=== PATIENT | male | born 1950 | race Caucasian/White ===

== ENCOUNTER 2016-09-25 20:31 | Emergency (ER) | payer BC ==
[2016-09-25] MEDS ORDERED: Aspirin Low Dose CHEW TAB* 81 MG PO ONE (21:22)
[2016-09-25 21:29] LABS: Hematocrit 42 % (42-52); Hemoglobin 14.1 g/dl (14.0-18.0); Mean Corpuscular HGB Conc 33 g/dl (31-36); Mean Corpuscular Hemoglobin 33 pg (27-31); Mean Corpuscular Volume 97 fL (80-94); Mean Platelet Volume 10 um3 (7.4-10.4); Red Blood Count 4.34 10^6/ul (4.0-5.4); Red Cell Distribution Width 13 % (10.5-15); White Blood Count 4.7 10^3/ul (3.5-10.8)
[2016-09-25 21:40] LABS: Albumin 4.4 g/dL (3.2-5.2); BUN/Creatinine Ratio 17.3 (8-20); Calcium 9.9 mg/dL (8.6-10.3); EGFR African American 73.4 (>60); EGFR Non-African American 57.1 (>60); Globulin 3.1 g/dL (2-4); Total Bilirubin 0.4 mg/dL (0.2-1.0); Total Protein 7.5 g/dL (6.4-8.9)
--- NOTE | 2016-09-25 22:16 | RAD ---
INDICATION: Wheezing COMPARISON: None. TECHNIQUE: Single AP portable view of the chest was obtained. FINDINGS: Image quality is compromised due to the relative inferiority of a portable chest x-ray. The heart and mediastinum exhibit normal size and contour. The lungs are grossly clear. There is no evidence of a large pleural effusion. Visualized bones are normal for the patient's age. IMPRESSION: No radiographic evidence for acute cardiopulmonary abnormality on this portable chest x-ray.
[2016-09-26 00:30] VITALS: BP 138/94
--- NOTE | 2016-09-26 00:34 | ED ---
Andreea Rios Alok, scribed for Lynn Shelton MD on 09/25/16 at 2243 . HPI Chest Pain - HPI Summary HPI Summary: 66M presents to the ED with an episode of CP earlier today. Pt was reportedly moving furniture at 1600 when he felt CP on the left side anterior which one hour later. Pt then mowed the in the heat. Pt states this CP was initially mild and has subsided since arriving at the ED. Pt denies changes in his CP with movement. Pt denies diaphoresis. PMHx includes HTN, HLD, sleep apnea. Pt drinks ETOH daily. Pt is a former tobacco smoker 10 years ago. - History of Current Complaint Chief Complaint: EDChestPainROMI Time Seen by Provider: 09/25/16 21:17 Hx Obtained From: Patient Onset/Duration: Started Hours Ago, Atraumatic, Resolved Timing: Constant, Lasting Hours Initial Severity: Moderate Current Severity: Moderate Pain Intensity: 1 Pain Scale Used: 0-10 Numeric Chest Pain Location: Left Anterior Aggravating Factor(s): Exertion Alleviating Factor(s): Nothing Associated Signs and Symptoms: Positive: Chest Pain. Negative: Fever, Diaphoresis - Allergy/Home Medications Allergies/Adverse Reactions: Allergies Allergy/AdvReac Type Severity Reaction Status Date / Time Cortisone Allergy Flushing Verified 09/25/16 20:33 Erythromycin Allergy Rash Verified 09/25/16 20:33 PMH/Surg Hx/FS Hx/Imm Hx Endocrine/Hematology History: Denies: Hx Diabetes, Hx Thyroid Disease Cardiovascular History: Denies: Hx Hypercholesterolemia, Hx Hypertension, Hx Pacemaker/ICD, Hx Peripheral Vascular Disease History: Denies: Hx Dialysis, Hx Renal Disease Musculoskeletal History: Reports: Other Musculoskeletal History - RIGHT HIP PAIN Denies: Hx Arthritis, Hx Rheumatoid Arthritis, Hx Osteoporosis Sensory History: Denies: Hx Cataracts, Hx Contacts or Glasses, Hx Glaucoma, Hx Hearing Aid Opthamlomology History: Denies: Hx Cataracts, Hx Contacts or Glasses, Hx Glaucoma Neurological History: Denies: Hx Headaches, Hx Seizures, Hx Transient Ischemic Attacks (TIA) Psychiatric History: Denies: Hx Anxiety, Hx Depression, Hx Panic Disorder - Surgical History Surgery Procedure, Year, and Place: hernia repair 1957. Left quadriceps repair from chainsaw injury 1979. TONSILECTOMY Infectious Disease History: No Infectious Disease History: Denies: Traveled Outside the [place] in Last 30 Days - Family History Known Family History: Negative: Cardiac Disease - Social History Lives: With Family Alcohol Use: Daily Alcohol Amount: WINE DAILY Substance Use Type: Reports: None Hx Tobacco Use: Yes Smoking Status (MU): Former Smoker Type: Cigarettes Review of Systems Negative: Fever, Skin Diaphoresis Positive: Chest Pain All Other Systems Reviewed And Are Negative: Yes Physical Exam Triage Information Reviewed: Yes Vital Signs On Initial Exam: Initial Vitals Temp Pulse Resp BP Pulse Ox 97.8 F 95 18 155/95 96 09/25/16 20:33 09/25/16 20:33 09/25/16 20:33 09/25/16 20:33 09/25/16 20:33 Vital Signs Reviewed: Yes Appearance: Positive: Well-Appearing, No Pain Distress Skin: Positive: Warm, Skin Color Reflects Adequate Perfusion, Dry Eyes: Positive: EOMI, OMKAR ENT: Positive: Pharynx normal, TMs normal Neck: Positive: Supple, Nontender Respiratory/Lung Sounds: Positive: Clear to Auscultation, Breath Sounds Present. Negative: Rales, Rhonchi, Wheezes Cardiovascular: Positive: RRR, Other - no gallop. Negative: Murmur, Rub Abdomen Description: Positive: Nontender, Soft, Other: - no rebound. Negative: Distended, Guarding Bowel Sounds: Positive: Present Musculoskeletal: Positive: Strength/ROM Intact. Negative: Edema Left, Edema Right Neurological: Positive: Sensory/Motor Intact, Alert, Oriented to Person Place, Time, CN Intact II-III Psychiatric: Positive: Affect/Mood Appropriate - Vivian Coma Scale Coma Scale Total: 15 Diagnostics - Vital Signs Vital Signs Temp Pulse Resp BP Pulse Ox 09/25/16 21:00 82 16 09/25/16 20:33 97.8 F 95 18 155/95 96 - Laboratory Lab Results: Lab Results 09/25/16 09/25/16 09/25/16 Range/Units 20:59 20:59 20:59 WBC 4.7 (3.5-10.8) 10^3/ul RBC 4.34 (4.0-5.4) 10^6/ul Hgb 14.1 (14.0-18.0) g/dl Hct 42 (42-52) % MCV 97 H (80-94) fL MCH 33 H (27-31) pg MCHC 33 (31-36) g/dl RDW 13 (10.5-15) % Plt Count 182 (150-450) 10^3/ul MPV 10 (7.4-10.4) um3 Neut % (Auto) 61.6 (38-83) % Lymph % (Auto) 28.2 (25-47) % [place] % (Auto) 8.2 (1-9) % Eos % (Auto) 1.6 (0-6) % Baso % (Auto) 0.4 (0-2) % Absolute Neuts (auto) 2.9 (1.5-7.7) 10^3/ul Absolute Lymphs (auto) 1.3 (1.0-4.8) 10^3/ul Absolute Monos (auto) 0.4 (0-0.8) 10^3/ul Absolute Eos (auto) 0.1 (0-0.6) 10^3/ul Absolute Basos (auto) 0 (0-0.2) 10^3/ul Absolute Nucleated RBC 0 10^3/ul Nucleated RBC % 0.1 Sodium 140 (133-145) mmol/L Potassium 4.0 (3.5-5.0) mmol/L Chloride 107 (101-111) mmol/L Carbon Dioxide 26 (22-32) mmol/L Anion Gap 7 (2-11) mmol/L BUN 22 (6-24) mg/dL Creatinine 1.27 H (0.67-1.17) mg/dL Est GFR ( Amer) 73.4 (>60) Est GFR (Non-Af Amer) 57.1 (>60) BUN/Creatinine Ratio 17.3 (8-20) Glucose 155 H (70-100) mg/dL Lactic Acid 1.5 (0.5-2.0) mmol/L Calcium 9.9 (8.6-10.3) mg/dL Total Bilirubin 0.40 (0.2-1.0) mg/dL AST 24 (13-39) U/L ALT 29 (7-52) U/L Alkaline Phosphatase 40 (34-104) U/L Troponin I 0.00 (<0.04) ng/mL Total Protein 7.5 (6.4-8.9) g/dL Albumin 4.4 (3.2-5.2) g/dL Globulin 3.1 (2-4) g/dL Albumin/Globulin Ratio 1.4 (1-3) Result Diagrams: 09/25/16 20:59 09/25/16 20:59 Lab Statement: Any lab studies that have been ordered have been reviewed, and results considered in the medical decision making process. - Radiology CXR Xray Interpretation: Positive (See Comments) - IMPRESSION: No radiographic evidence for acute cardiopulmonary abnormality on this portable chest x-ray. Radiology Interpretation Completed By: Radiologist - EKG 2038 Cardiac Rate: NL - 94 bpm EKG Rhythm: Sinus Rhythm Chest Pain Course/Dx - Course Course Of Treatment: 66 yo male with hx of htn and borderline high cholesterol with cp tonight, efforts were made to convince the pt to be observed over night since he noticed that he was more tired last week after working outside. He did not agree to this and is aware that there is the risk that this is unstable angina and he could have a massive heart attack, he did have two troponins with the second troponin at 6 hours and this was negative. he will arrange a f/u with his pmd for a stress test. - Diagnoses Provider Diagnoses: Chest pain Discharge - Discharge Plan Condition: Stable Disposition: HOME Patient Education Materials: Chest Pain (ED) Referrals: Preethi Urbina MD [Primary Care Provider] - Additional Instructions: Please follow up with your primary care provider The documentation as recorded by the Andreea vasquez Alok accurately reflects the service I personally performed and the decisions made by me, Lynn Shelton MD.
== END 2016-09-26 00:38 | disposition home or self-care (01) ==
LOC: ED 20:31 → SUPCPDRO 20:31 → ED 09-26 00:38
DX: R07.9 Chest pain, unspecified (principal); Z87.891 Personal history of nicotine dependence
CPT/HCPCS: 36415; 71010; 80053; 83605; 84484; 85025; 93005; 99283; A9270-GY

== ENCOUNTER 2018-02-06 18:32 | Emergency (ER) | payer BC, MEDICARE ==
[2018-02-06 18:46] VITALS: BP 143/86
--- NOTE | 2018-02-06 19:35 | ED ---
Skin Complaint - HPI Summary HPI Summary: Patient presents with rash in right groin which is been here for about a week. He reports he's been using topical Lamisil cream over the past 4-5 days and feels the center of his rash is clearing however he continues to have a red ring. Itching has resolved however there is still intermittent burning sensation. He denies fevers chills nausea vomiting diarrhea swelling of the lower extremity or genital issues. He has a history of athlete's foot and is usually able to get this under control within a couple of days with topical creams. He is frustrated that this rash in his groin has not resolved by now. He does admit he sits for long periods at his chair throughout the day and has been using a heating pad to help with his hip pain may be producing some extra heat/moisture in the area as a result. He is not applying any powder to the area and believes he initially caused this rash from walking daily when he had a lot of friction in the area. Denies history of diabetes or other autoimmune disorders. - History of Current Complaint Chief Complaint: UCRash Time Seen by Provider: 02/06/18 19:09 Stated Complaint: RASH Hx Obtained From: Patient Pain Intensity: 2 - Allergy/Home Medications Allergies/Adverse Reactions: Allergies Allergy/AdvReac Type Severity Reaction Status Date / Time cortisone Allergy Flushing Verified 02/06/18 18:47 erythromycin base Allergy Rash Verified 02/06/18 18:47 Home Medications: Home Medications Acetaminophen [APAP] 650 mg PO 02/06/18 [History] Losartan TAB* [Cozaar TAB*] 25 mg PO DAILY 02/06/18 [History Confirmed 02/06/18] Saw [place] Fruit [Saw [place]] 450 mg PO 02/06/18 [History] PMH/Surg Hx/FS Hx/Imm Hx Previously Healthy: Yes Endocrine/Hematology History: Reports: Other Endocrine/Hematological Disorders - h/o athlete's foot Denies: Hx Diabetes, Hx Thyroid Disease, Autoimmune Disease Cardiovascular History: Reports: Hx Hypertension Denies: Hx Hypercholesterolemia, Hx Pacemaker/ICD, Hx Peripheral Vascular Disease History: Denies: Hx Dialysis, Hx Renal Disease Musculoskeletal History: Reports: Other Musculoskeletal History - RIGHT HIP PAIN Denies: Hx Arthritis, Hx Rheumatoid Arthritis, Hx Osteoporosis Sensory History: Denies: Hx Cataracts, Hx Contacts or Glasses, Hx Glaucoma, Hx Hearing Aid Opthamlomology History: Denies: Hx Cataracts, Hx Contacts or Glasses, Hx Glaucoma Neurological History: Denies: Hx Headaches, Hx Seizures, Hx Transient Ischemic Attacks (TIA) Psychiatric History: Denies: Hx Anxiety, Hx Depression, Hx Panic Disorder - Surgical History Surgery Procedure, Year, and Place: hernia repair 1957. Left quadriceps repair from chainsaw injury 1979. TONSILECTOMY Infectious Disease History: No Infectious Disease History: Denies: Traveled Outside the [place] in Last 30 Days - Family History Known Family History: Negative: Cardiac Disease - Social History Occupation: Employed Full-time - works at home Lives: With Family Alcohol Use: Weekly Alcohol Amount: WINE DAILY Hx Substance Use: No Substance Use Type: Reports: None Hx Tobacco Use: Yes Smoking Status (MU): Former Smoker Type: Cigarettes Review of Systems Constitutional: Negative Negative: Fever, Chills, Fatigue Gastrointestinal: Negative Genitourinary: Negative Musculoskeletal: Negative Positive: Rash Neurological: Negative Psychological: Normal All Other Systems Reviewed And Are Negative: Yes Physical Exam Triage Information Reviewed: Yes Vital Signs On Initial Exam: Initial Vitals Temp Pulse Resp BP Pulse Ox 98.3 F 77 18 143/86 97 02/06/18 18:41 02/06/18 18:41 02/06/18 18:41 02/06/18 18:41 02/06/18 18:41 Vital Signs Reviewed: Yes Appearance: Positive: Well-Appearing, No Pain Distress, Well-Nourished Skin: Positive: Warm, Skin Color Reflects Adequate Perfusion, Dry - Rt groin w/ red ring - central clearing - scant satellite red spots - no skin breakdown or maceration/edema Head/Face: Positive: Normal Head/Face Inspection Eyes: Positive: EOMI ENT: Positive: Hearing grossly normal Respiratory/Lung Sounds: Positive: Breath Sounds Present Male Genital Exam: Positive: Normal Genitalia Musculoskeletal: Positive: Normal, Strength/ROM Intact Neurological: Positive: Normal, Sensory/Motor Intact, Alert, Oriented to Person Place, Time, CN Intact II-III Psychiatric: Positive: Normal Diagnostics - Vital Signs Vital Signs Temp Pulse Resp BP Pulse Ox 02/06/18 18:41 98.3 F 77 18 143/86 97 - Laboratory Lab Statement: Any lab studies that have been ordered have been reviewed, and results considered in the medical decision making process. Course/Dx - Course Course Of Treatment: Suspect fungal vs. candidal infection. Education about use of cream and will add rx anti-fungal powder as well as lifestyle habits. If no relief, f/u w/ derm. Pt agrees w/ plan. - Diagnoses Provider Diagnoses: Tinea cruris Discharge - Sign-Out/Discharge Documenting (check all that apply): Patient Departure All imaging exams completed and their final reports reviewed: No Studies - Discharge Plan Condition: Stable Disposition: HOME Prescriptions: Nystatin TOP POWDER* 1 applic TOPICAL TID #1 btl Patient Education Materials: Jock Itch (ED), Skin Yeast Infection (ED) Referrals: Kendra West PA [[facility] Specialist] - Additional Instructions: Continue Lamisil topical cream 2 x day and after showering but use a thin film and rub it into the skin well - allow tissue to breath as much as possible and avoid heat. If undergarments are moist throughout the day, change them and reapply powder. If rash persists or worsens, follow-up with dermatology - contact information provided today. - Billing Disposition and Condition Condition: STABLE Disposition: Home - Attestation Statements Provider Attestation: I was available for consult. This patient was seen by the SYB[facility]. The patient was not presented to, seen by, or examined by me. -Heather
== END 2018-02-06 19:48 | disposition home or self-care (01) ==
LOC: UCEAST 18:32
DX: B35.6 Tinea cruris (principal); I10 Essential (primary) hypertension; Z88.8 Allergy status to other drugs, medicaments and biological substances; Z88.1 Allergy status to other antibiotic agents; Z79.899 Other long term (current) drug therapy; Z87.891 Personal history of nicotine dependence
CPT/HCPCS: 99212; G0463